=== PATIENT | female | born 1980 | race African-American/Black ===

== ENCOUNTER 2021-06-07 16:29 | Emergency (ER) | payer MEDICAID, SELFPAY ==
[2021-06-07 16:49] VITALS: BP 143/73; RESP 20; TEMP 36.5; O2SAT 99; BMI 48.4
--- NOTE | 2021-06-07 17:00 | ED.RN ---
PER EMS PATIENT HAD 2 EPISODES OF NOT RESPONDING IN [place]. THEY STATE AFTER A STERNAL RUB PATIENT CAME TO QUICKLY. WHEN PATIENT WHEELED INTO TRIAGE IN WHEELCHAIR SHE SLUMPED FORWARD AND WOUND NOT RESPOND. STAFF MEMBER USED SMELLING SALTS AND PATIENT CAME TO QUICKLY AND WAS VERY ANGRY WITH NURSE AND KEPT HITTING MY HAND AWAY.
[2021-06-07 17:10] LABS: Bedside Glucose 319 mg/dL (70-110)
[2021-06-07 18:41] LABS: Bedside Glucose 323 mg/dL (70-110)
[2021-06-07 18:49] VITALS: BP 169/105; PULSE 62; RESP 16; TEMP 36.4; O2SAT 97
--- NOTE | 2021-06-07 19:05 | EKG12_ITS ---
Test Reason : NAUSEA N VOMIT Blood Pressure : / mmHG Vent. Rate : 060 BPM Atrial Rate : 060 BPM P-R Int : 146 ms QRS Dur : 082 ms QT Int : 466 ms P-R-T Axes : 028 015 019 degrees QTc Int : 466 ms Normal sinus rhythm with sinus arrhythmia Normal ECG Confirmed by BANG DUMONT, JUANITA ([id number]), news editor ADOLPH LYNN ([id number]) on 06/11/2021 9:45:16 AM Referred By: ALECIA Confirmed By:NAKIA CUENCA MD
--- NOTE | 2021-06-07 19:06 | EDS_ITS ---
HPI HPI - GI History of Present Illness Chief Complaint: Nausea/Vomiting Informant: patient Abdominal Pain/Flank Pain Onset: Days Context: Gradual Onset Timing: Continuous Nausea/Vomiting/Emesis GI Symptom: Positive for Nausea and Vomiting Severity: Mild Diarrhea/Melena/Hematochezia GI Symptom: Negative for Diarrhea, Melena and Hematochezia Associated Symptoms Associated Symptoms: Negative for Dysuria, Frequency and Hematuria Narrative Narrative: 40-year-old female history of diabetes CHF. Had nausea vomiting last several days. She was seen in [facility] yesterday work-up in emergency department discharge. She continues to have nausea vomiting she has had some dark emesis. No melena. No hematemesis. No fever. No abdominal pain. Prior history of similar episodes without specific diagnosis. Prior similar symptoms: Yes Recent Illness/Hospitalization: No PFSH PFSH Medical History Congestive heart failure Diabetes mellitus Home Medications furosemide [Lasix] 40 mg PO BID 06/07/21 [History Last Taken Unknown] insulin glargine [Lantus Solostar U-100 Insulin] 0 unit SUBCUT QPM 06/07/21 [History Last Taken Unknown] insulin lispro 0 unit SUBCUT TID 06/07/21 [History Last Taken Unknown] ondansetron 4 mg PO Q8H 3 Days #9 tab 06/07/21 [Rx Last Taken Unknown] Allergy/AdvReac Type Severity Reaction Status Date / Time kiwi Allergy PT UNABLE Verified 06/07/21 16:59 TO RESPOND-NEEDS F/U shellfish derived Allergy PT UNABLE Verified 06/07/21 16:59 TO RESPOND-NEEDS F/U Social History Smoking Status: Never smoker ROS ROS ED ROS Narrative Nausea and vomiting. Review of Systems ROS Unobtainable: Denies due to encephalopathy Constitutional Constitutional ED: Denies fever(s) ENT ENT ED: Denies ear pain or sore throat Cardiovascular Cardiovascular: Denies chest pain or palpitations Respiratory/Chest Respiratory/Chest: Denies cough or dyspnea Gastrointestinal Gastrointestinal: Reports nausea and vomiting; Denies abdominal pain, diarrhea or melena Genitourinary Genitourinary ED: Denies dysuria Musculoskeletal Musculoskeletal: Denies myalgias Integumentary Denies rash Neurologic Neurologic: Denies headache(s) Psychiatric Psychiatric: Denies depression Endocrine Endocrinology: Denies polyuria Hematologic/Lymphatic Hematologic/Lymphatic: Denies easy bruising Allergic/Immunologic Allergic/Immunologic ED: Denies urticaria EXAM Physical Exam Narrative Exam Narrative: 32-year-old female vital signs are stable she is afebrile she does not look septic or toxic. She is not very talkative. HEENT exam unremarkable. Moist with membranes. Pupils are reactive light no facial droop no signs of trauma. Neck nontender no meningismus. Lungs clear to auscultation bilaterally. Heart regular rhythm rate about 60 no murmur. Abdomen obese with soft nontender nondistended normal bowel sounds no peritoneal signs. Right upper and right lower quadrant unremarkable. Patient moving all 4 extremities. Nontender no edema. Back nontender. Neurologically she is awake and alert. Answers questions and follows commands. She is moving all 4 extremities. Const Vital Signs: 06/07/21 16:49 06/07/21 18:49 06/07/21 19:13 Temperature 97.7 F L 97.5 F L Temperature Source Temporal Temporal Pulse Rate 62 64 Respiratory Rate 20 H 16 16 Blood Pressure 143/73 H 169/105 H 162/104 H Blood Pressure Mean 96 126 123 Pulse Ox 99 97 97 Oxygen Delivery Method Room Air Room Air Room Air 06/07/21 22:08 Temperature Temperature Source Pulse Rate 73 Respiratory Rate 16 Blood Pressure 131/101 H Blood Pressure Mean 111 Pulse Ox 97 Oxygen Delivery Method Room Air Positive well nourished, well developed and obese; Negative for cachectic, contractures or unkempt General Appearance ED: well developed and NAD; Negative for unkempt, cachectic, contractures or pallor Nutritional Appearance: obese; Negative for cachectic HEENT Reports moist mucous membranes normocephalic and atraumatic; Negative for trauma or tenderness Eyes PERRL and EOMs intact bilaterally Neck no lymphadenopathy, supple and no JVD General: Negative for tenderness Resp normal respiratory effort and clear to auscultation bilaterally Auscultation: Negative for rales, rhonchi or wheezes Cardio regular rate, regular rhythm, S1 normal heart sound, S2 normal heart sound and no murmurs GI non-tender, non-distended and no masses Auscultation: normoactive bowel sounds Palpation: soft; Negative for tender, guarding, rigid or rebound tenderness present Back/Spine no CVA tenderness Extremity full ROM General Extremety ED: Negative for edema or tenderness General Extremity: Negative for edema Neuro moves all extremities Sensorium / Orientation: oriented to person, oriented to place and oriented to time; Negative for orientation impaired, confused, lethargic or stuporous Motor Exam: strength 5/5 throughout Psych mental status grossly normal and thought process normal Appearance: Negative for unkempt Skin no wounds General Skin Exam: Negative for jaundice or pallor Lesions: no lesions Rashes: no rashes MDM MDM MDM Narrative Medical decision making narrative: 40-year-old diabetic female with nausea vomiting. Exam is benign. She will be treated with IV fluids and Zofran screening labs are being obtained. Patient is somewhat limited informant. Repeat exam 11:15 PM patient doing well. Abdomen is benign. I went over all the test results with her and her friend at bedside. There is nothing to admit her to the hospital for at this time. She will get a dose of IV Phenergan prior to discharge. She will be written for Zofran for home. Follow-up with her primary care physician. Lab Data Attestation: I reviewed the patient's lab results. Lab results narrative: CBC White count 8. Hemoglobin 13. Electrolytes gap at 9 BUN of 4 creatinine 0.6 liver enzymes unremarkable glucose 353. Lipase 42. Urinalysis showed blood but no signs of infection. Labs: Laboratory Results - last 24 hr 06/07/21 06/07/21 06/07/21 16:55 18:30 18:30 WBC 8.2 RBC 4.34 Hgb 13.0 Hct 37.7 MCV 86.9 MCH 30.0 MCHC 34.5 RDW Std Deviation 38.0 RDW Coeff of Rsihi 11.9 Plt Count 280 MPV 9.4 Immature Gran % (Auto) 0.900 Neut % (Auto) 78.1 H Lymph % (Auto) 18.4 L [place] % (Auto) 2.3 Eos % (Auto) 0.1 Baso % (Auto) 0.2 Absolute Neuts (auto) 6.4 Absolute Lymphs (auto) 1.51 Nucleated RBC % 0 Sodium 138 Potassium 3.7 Chloride 102 Carbon Dioxide 27.0 Anion Gap 9 BUN 4 L Creatinine 0.63 Estim Creat Clear Calc 113.34 Est GFR (MDRD) Af Amer 137 Est GFR (MDRD) Non-Af 113 BUN/Creatinine Ratio 6.4 L Glucose 353 H Calcium 9.2 Total Bilirubin 0.60 AST 16 ALT 24 Alkaline Phosphatase 107 Total Protein 8.2 Albumin 3.2 Globulin 5.0 H Albumin/Globulin Ratio 0.6 L Lipase 42 L Serum , Qual Urine Color Urine Clarity Urine pH Ur Specific [place] Urine Protein Urine Glucose (UA) Urine Ketones Urine Occult Blood Urine Nitrite Urine Bilirubin Urine Urobilinogen Ur Leukocyte Esterase Urine RBC Urine WBC Ur Squamous Epith Cells Urine Bacteria Urine Mucus POC Glucose 319 H 06/07/21 06/07/21 06/07/21 18:30 18:37 19:39 WBC RBC Hgb Hct MCV MCH MCHC RDW Std Deviation RDW Coeff of Rishi Plt Count MPV Immature Gran % (Auto) Neut % (Auto) Lymph % (Auto) [place] % (Auto) Eos % (Auto) Baso % (Auto) Absolute Neuts (auto) Absolute Lymphs (auto) Nucleated RBC % Sodium Potassium Chloride Carbon Dioxide Anion Gap BUN Creatinine Estim Creat Clear Calc Est GFR (MDRD) Af Amer Est GFR (MDRD) Non-Af BUN/Creatinine Ratio Glucose Calcium Total Bilirubin AST ALT Alkaline Phosphatase Total Protein Albumin Globulin Albumin/Globulin Ratio Lipase Serum , Qual NEGATIVE Urine Color Yellow Urine Clarity Clear Urine pH 6.0 Ur Specific [place] 1.020 Urine Protein 15 H Urine Glucose (UA) 1000 H Urine Ketones 150 A* Urine Occult Blood 250 H Urine Nitrite Negative Urine Bilirubin Negative Urine Urobilinogen Normal Ur Leukocyte Esterase Negative Urine RBC 0 SEEN Urine WBC 0-5 SEEN Ur Squamous Epith Cells 0-5 SEEN Urine Bacteria RARE Urine Mucus 0 SEEN POC Glucose 323 H Radiography Diagnostic Testing: Clinical Impression(s) from Imaging Studies Chest X-Ray 06/07/21 19:18 IMPRESSION: There are no acute findings. Electronically Signed: Satish Reyes MD at 19:50 EST , Service support , Chest x-ray, portable, one view interpreted by myself and radiologist shows no acute abnormality. Normal cardiac silhouette mediastinum. Rhythm Strip Rhythm Strip: Sinus Rhythm Rate: 60 Ectopy: None EKG Initial EKG: Attestation: I personally reviewed and interpreted this EKG as follows: Interpretation: Sinus Rhythm and No Acute Injury Pattern Comments: Normal sinus rhythm rate of 60 no acute signs of [place] or ischemia. Prior EKG tracings: not available for review Discharge Plan Triage Chief Complaint: Nausea/Vomiting ED Provider: Peter Lane Dx/Rx/DC Orders Clinical Impression: Vomiting, Hyperglycemia due to diabetes mellitus Instructions: High Blood Sugar (Hyperglycemia), ED Vomiting (Adult) Prescriptions: New ondansetron 4 mg tablet,disintegrating 4 mg PO Q8H 3 Days Qty: 9 RF: 0 No Action furosemide [Lasix] 40 mg Tablet 40 mg PO BID RF: 0 insulin lispro 100 unit/mL Solution 0 unit SUBCUT TID RF: 0 Lantus Solostar U-100 Insulin 100 unit/mL (3 mL) Insulin Pen 0 unit SUBCUT QPM RF: 0 Primary Care Provider: Care Physician,No Primary Referrals: Julia Hackett MD [STAFF PHYSICIAN] - As soon as possible Care Physician,No Primary [Primary Care Provider] - Activity Restrictions/Additional Instructions: Plenty of fluids and rest. Increase your diet slowly as tolerated. Zofran as needed for nausea. Get a primary care physician soon as possible either in [place] or in this area. Watch your blood sugars very closely make sure you take your insulin tonight. Disposition Disposition: Home, Self Care
[2021-06-07] MEDS: 0.9% Normal Saline 1,000 ML 1000 ML IV (19:10)
[2021-06-07] MEDS: Ondansetron 4 MG/2 ML Vial IV ×2 (19:10→22:05)
[2021-06-07 19:13] VITALS: BP 162/104; PULSE 64; RESP 16; O2SAT 97
--- NOTE | 2021-06-07 19:18 | RAD_ITS ---
STUDY: X-RAY CHEST REASON FOR EXAM: Female, 40 years old. CHEST PAIN weakness TECHNIQUE: XR Chest 1 View COMPARISON: None FINDINGS: There is no demonstrated pleural abnormality. Normal size heart. Normal mediastinum and rosie. Normal visualized pulmonary arteries. Normal visualized aortic arch and descending thoracic aorta. Normal visualized thoracic spine. Normal visualized ribs, clavicles, and shoulders. There is no demonstrated abnormality of the visualized soft tissue structures of the upper abdomen. RAD/Chest 1 View (Portable) IMPRESSION: There are no acute findings. Electronically Signed: Satish Reyes MD at 19:50 EST , Service support ,
[2021-06-07 19:35] LABS: Absolute Lymphocyte Count 1.51 X10^3/uL (0.83-4.51); Absolute Neutrophil Count 6.4 X10^3/uL (2.0-7.7); Basophil# 0.02 X10^3/uL; Basophil% 0.2 % (0-1); Eosinophil# 0.01 X10^3/uL; Eosinophils% 0.1 % (0-5); Hematocrit 37.7 % (37-47); Lymphocyte # 1.51 X10^3/ul (0.83-4.51); Lymphocyte % 18.4 % (19-41); Mean Corp Hgb Conc 34.5 g/dL (32-36); Mean Corpuscular Volume 86.9 fL (81-99); Mean Platelet Vol. 9.4 fl (6.2-12.0); Monocyte# 0.19 X10^3/uL; Monocyte% 2.3 % (0-10); NRBC Flagged by Analyzer 0 % (0-5); Neutrophil % 78.1 % (47-70); Platelet Count 280 K/mm3 (150-450); RBC Distribution Width CV 11.9 % (11.6-14.6); Red Blood Count 4.34 M/mm3 (4.2-5.4); White Blood Count 8.2 K/mm3 (4.4-11.0)
[2021-06-07 19:46] LABS: Mucous, Urine 0 SEEN /hpf (<or=2+); Red Blood Cells-Urine 0 SEEN /hpf (0-5)
[2021-06-07 19:47] LABS: Color, Urine Yellow (Yellow); Glucose, Dipstick 1000 mg/dl (Normal); Leukocyte Esterase-Dipstick Negative /ul (Negative); Nitrite-Dipstick Negative (Negative); Occult Blood-Urine 250 /ul (Negative); Protein-Dipstick 15 mg/dl (Negative); Urine Bilirubin Dipstick Negative (Negative); Urine Clarity Clear (Clear); Urine Urobilinogen Normal (Normal)
[2021-06-07 19:48] LABS: Ketone-Dipstick 150 mg/dl (Negative)
[2021-06-07 19:48] LABS: ALB/GLOB Ratio 0.6 RATIO (0.9-2.4); AST(SGOT) 16 U/L (15-37); Alanine Aminotransfer ALT/SGPT 24 U/L (13-56); Albumin, Serum 3.2 g/dL (3.2-5.0); Alkaline Phosphatase 107 U/L (45-117); Anion Gap 9 (5-15); BUN 4 mg/dL (7-18); BUN/Creat Ratio 6.4 RATIO (10-20); Calcium,Total 9.2 mg/dL (8.5-10.1); Chloride 102 mmol/L (98-107); Creatinine, Serum 0.63 mg/dL (0.55-1.02); EST Glomerular Filtration Rate 113 mL/min (>60); Est Glom Filt Rate - Afr Amer 137 mL/min (>60); Estimated Creatinine Clearance 113.34 ml/min; Glucose 353 mg/dL (74-106); Lipase 42 U/L (73-393); Potassium 3.7 mmol/L (3.5-5.1); Protein, Total 8.2 g/dL (6.4-8.2); Sodium Level 138 mmol/L (136-145)
[2021-06-07 19:57] LABS: Squamous Epithelial Cells - UA 0-5 SEEN /hpf (5-10); White Blood Cells 0-5 SEEN /hpf (0-5)
[2021-06-07 19:58] LABS: Bacteria RARE /hpf (None Seen)
[2021-06-07 20:02] LABS: Internal QC Validated? YES +Cl - CLEAR BKGD; Pregnancy, Serum, hCG Quali. NEGATIVE Negative
--- NOTE | 2021-06-07 20:10 | CM.ED ---
SW Note Referral Source: Case Find Referral Reason: No Primary Care Physician (PCP) SW reviewed chart and noted that patient has no PCP. Patient was aleep but she had a female visitor who identified herself as patient's friend. SW explained that patient has listed as not having an PCP. SW provided patient with list of [facility] and [facility] Physician List for reference. Patient's friend said that she would provide the patient with list of Providers of Health Care Providers 2020 and friend agreed to provide it to patient.. No other issues or concerns voiced at this time. SW remains available for any additional needs. Plan: Provided patient with PCP information Lola BABB
--- NOTE | 2021-06-07 20:29 | ED.RN ---
PT KEEPS EYES CLOSED, DOES NOT RESPOND TO QUESTIONS OR ANY VERBAL STIMULI. PT IMMEDIATELY SITS UP WITH STERNAL RUB AND BEGINS SPEAKING. PT CONTINUES TO RESPOND APPROPRIATELY AFTER STERNAL RUB, ABLE TO TOILET SELF.
[2021-06-07 22:08] VITALS: BP 131/101; PULSE 73; RESP 16; O2SAT 97
[2021-06-07] MEDS: proMETHazine 25 MG/ML Syringe 12.5 MG IM (23:33)
[2021-06-07 23:40] VITALS: BP 128/90
--- NOTE | 2021-06-07 23:54 | ED.RN ---
pharmacy talked with pt. unable to fill prescription because she had prescription filled yesterday.
== END 2021-06-07 23:55 | disposition home or self-care (01) ==
PROVIDERS: Emergency Provider Emergency Medicine
DX: E11.65 Type 2 diabetes mellitus with hyperglycemia (principal); R11.2 Nausea with vomiting, unspecified; E66.9 Obesity, unspecified; I50.9 Heart failure, unspecified; Z79.4 Long term (current) use of insulin
CPT/HCPCS: 71045; 80053; 81001; 82962; 83690; 84703; 85025; 93005; 99285; A4216; J2405